=== PATIENT | male | born 1990 | race African-American/Black ===

== ENCOUNTER 2021-01-07 22:25 | Emergency (ER) | payer OTHER ==
[~2021-01-07] VITALS: Ht 193 cm; Wt 113.5 kg
[2021-01-08] MEDS ORDERED: diphenhydrAMINE 50MG CAP PO ONE (01:30)
[2021-01-08] MEDS ORDERED: HYDROCORTISONE 1% CREAM 30 GM TOP ONE (01:30)
[2021-01-08] MEDS ORDERED: HYDR1CRE30 TOP (01:35)
[2021-01-08 01:46] VITALS: BP 143/62
== END 2021-01-08 01:48 | disposition home or self-care (01) ==
LOC: M ED 22:25
DX: R22.0 Localized swelling, mass and lump, head (principal); T63.461A Toxic effect of venom of wasps, accidental (unintentional), initial encounter; Y92.89 Other specified places as the place of occurrence of the external cause; I10 Essential (primary) hypertension; F17.210 Nicotine dependence, cigarettes, uncomplicated

== ENCOUNTER → 2022-02-12 | Outpatient (CLI) | payer OTHER ==
[~2022-02-12] MED LIST: HYDR1CRE30 TOP
== END ==
LOC: M RAD 17:30
PROVIDERS: ATTEND Physician Assistant
DX: M79.644 Pain in right finger(s) (principal); S63.8X1A Sprain of other part of right wrist and hand, initial encounter; W18.30XA Fall on same level, unspecified, initial encounter; Y92.009 Unspecified place in unspecified non-institutional (private) residence as the place of occurrence of the external cause